=== PATIENT | female | born 1980 | race Hispanic/Latino ===

== ENCOUNTER 2022-03-03 14:34 | Emergency (ER) | payer BC ==
[~2022-03-03] VITALS: Ht 157.5 cm; Wt 71.2 kg
[~2022-03-03 14:34] MED LIST: TRAMADOL HCL-A1 EAC1; Z.0.CIPRO500 MG
== END 2022-03-03 17:24 | disposition home or self-care (01) ==
LOC: ER 14:52
DX: M79.89 Other specified soft tissue disorders (principal); M79.605 Pain in left leg; M79.604 Pain in right leg; I73.9 Peripheral vascular disease, unspecified; I10 Essential (primary) hypertension
CPT/HCPCS: 93925; 93970; 99283

== ENCOUNTER 2024-05-14 11:56 | Emergency (ER) | payer BC, OTHER ==
[~2024-05-14] VITALS: Ht 157.5 cm; Wt 81.6 kg
[2024-05-14 12:11] VITALS: PULSE 71; RESP 18; TEMP 99.2; O2SAT 98
[2024-05-14] MEDS ORDERED: PREDNISONE20 MG PO (13:26)
[2024-05-14] MEDS ORDERED: VENTOLIN HFA18 GM INH (13:26)
== END 2024-05-14 13:50 | disposition home or self-care (01) ==
LOC: ER 12:08
DX: R50.9 Fever, unspecified (principal); J20.8 Acute bronchitis due to other specified organisms; R05.9 Cough, unspecified; I10 Essential (primary) hypertension; I73.9 Peripheral vascular disease, unspecified
CPT/HCPCS: 71045; 99283